=== PATIENT | male | born 1995 | race Two or more races ===

== ENCOUNTER 2020-05-23 13:49 | Emergency (ER) | payer OTHER ==
[~2020-05-23] VITALS: Ht 165.1 cm; Wt 70.3 kg
[2020-05-23] MEDS ORDERED: COL-RITE100 MG (14:04)
[2020-05-23] MEDS ORDERED: BACLOFEN20 MG (14:05)
[2020-05-23] MEDS ORDERED: NABUMETONE750 MG (14:05)
[2020-05-23] MEDS ORDERED: GABAPENTIN100 M2 (14:05)
== END 2020-05-23 15:24 | disposition home or self-care (01) ==
LOC: ER 13:49
DX: M94.0 Chondrocostal junction syndrome [Tietze] (principal); R07.89 Other chest pain; F41.8 Other specified anxiety disorders

== ENCOUNTER 2020-05-26 14:39 | Emergency (ER) | payer OTHER ==
[~2020-05-26] VITALS: Ht 165.1 cm; Wt 74.8 kg
[~2020-05-26 14:39] MED LIST: BACLOFEN20 MG; COL-RITE100 MG; GABAPENTIN100 M2; NABUMETONE750 MG
[2020-05-26] MEDS ORDERED: CHLORZOXAZONE500 MG (14:53)
[2020-05-26] MEDS ORDERED: CAMBIA50 MG (14:53)
[2020-05-26] MEDS ORDERED: STOOL SOFT50 MG/5 ML (14:54)
== END 2020-05-27 00:54 | disposition home or self-care (01) ==
LOC: ER 14:39
DX: K59.09 Other constipation (principal); R10.31 Right lower quadrant pain

== ENCOUNTER → 2020-06-22 | Outpatient (CLI) | payer OTHER ==
[~2020-06-22] MED LIST changes: +CAMBIA50 MG; +CHLORZOXAZONE500 MG; +STOOL SOFT50 MG/5 ML
== END | disposition home or self-care (01) ==
LOC: MAMO-SONO 06-12 08:15 → SONOGRAMA 09:46
PROVIDERS: ATTEND General Practice
DX: K80.80 Other cholelithiasis without obstruction (principal); R10.84 Generalized abdominal pain; R10.2 Pelvic and perineal pain

== ENCOUNTER 2020-11-07 12:54 | Emergency (ER) | payer OTHER ==
[~2020-11-07] VITALS: Ht 165.1 cm; Wt 74.8 kg
== END 2020-11-07 22:50 | disposition home or self-care (01) ==
LOC: ER 12:54
DX: R10.31 Right lower quadrant pain (principal)

== ENCOUNTER 2021-05-09 19:45 | Emergency (ER) | payer OTHER ==
[~2021-05-09] VITALS: Ht 165.1 cm; Wt 79.4 kg
== END 2021-05-10 01:52 | disposition home or self-care (01) ==
LOC: ER 19:45
DX: M54.9 Dorsalgia, unspecified (principal)